=== PATIENT | female | born 1995 ===

== ENCOUNTER 2021-07-31 13:05 | Emergency (ER) | payer SELFPAY ==
[~2021-07-31] VITALS: Ht 162.6 cm; Wt 95.3 kg
[2021-07-31] MEDS ORDERED: FLUORESCEIN SOD OPTH TEST STRIP LEFTEYE ONE (14:15)
[2021-07-31] MEDS ORDERED: TETRACAINE HCL 0.5% OPTH(EYE) SOLN 4ML LEFTEYE ONE (14:15)
[2021-07-31 14:17] VITALS: BP 120/80
[2021-07-31] MEDS ORDERED: GEN03OS LEFTEYE (15:26)
[2021-07-31] MEDS ORDERED: IBUP800T26 PO (15:39)
[2021-07-31] MEDS ORDERED: IBUPROFEN 800 MG TAB PO ONE (15:45)
== END 2021-07-31 15:54 | disposition home or self-care (01) ==
LOC: ER 13:05
DX: S05.02XA Injury of conjunctiva and corneal abrasion without foreign body, left eye, initial encounter (principal); X58.XXXA Exposure to other specified factors, initial encounter; Y93.89 Activity, other specified; Y92.89 Other specified places as the place of occurrence of the external cause; Y99.8 Other external cause status